=== PATIENT | female | born 1985 | race Two or more races ===

== ENCOUNTER 2024-09-29 13:37 | Emergency (ER) | payer OTHER, SELFPAY ==
[2024-09-29 13:39] VITALS: BMI 23.1
[2024-09-29 13:56] VITALS: BP 118/73; PULSE 71; RESP 16; TEMP 37.1; O2SAT 97
--- NOTE | 2024-09-29 14:01 | EDNOTE_ITS ---
ED Headache RME/HPI General Chief Complaint: Headache Stated Complaint: BAD VERAS, FEELS NUMB, AREA AROUND NOSE HURTING 2WKS Time Seen by Provider: 09/29/24 15:00 Source: patient Arrival date/time: 09/29/24 13:37 39-year-old female with no known medical history presents to the emergency room with a chief complaint of a headache, sinus tenderness x 2 weeks Mode of arrival: ambulatory Limitations: no limitations Related Data Previous Rx's ?Medication ?Instructions ?Recorded cyclobenzaprine 10 mg tablet 10 mg PO HS #14 tabs 05/02 01/20 meloxicam 7.5 mg tablet 7.5 mg PO QDAY #14 tabs 05/02 01/20 amoxicillin 875 mg-potassium 1 tab PO BID 7 days #14 t abs 09/29/24 clavulanate 125 mg tablet Allergies Allergy/AdvReac Type Severity Reaction Status Date / Time No Known Allergies Allergy Verified 09/29/24 13:44 Review of Systems Review of Systems Systems Reviewed: All systems reviewed, normal except as documented Constitutional Constitutional: Reports system reviewed and no additional complaints, except as documented, Denies fatigue, Denies fever(s), Denies headache(s) and Denies weakness Eyes Eyes: Reports system reviewed and no additional complaints, except as documented, Denies blurry vision and Denies change in vision ENT Ears, Nose, Mouth, and Throat: Reports system reviewed and no additional complaints, except as documented, Denies otalgia, Denies headache(s), Denies nasal congestion, Reports odynophagia, Reports sinus pain, Reports sinus pressure, Reports sore throat, Denies throat swelling and Denies vertigo Cardiovascular Cardiovascular: Reports system reviewed and no additional complaints, except as documented, Denies chest pain, Denies dyspnea and Denies dyspnea on exertion Respiratory Respiratory: Reports system reviewed and no additional complaints, except as documented, Denies chest congestion, Denies cough, Denies dyspnea, Denies dyspnea on exertion and Denies wheezing Gastrointestinal Gastrointestinal: Reports system reviewed and no additional complaints, except as documented, Denies abdominal pain, Denies cramping, Denies nausea, Reports odynophagia and Denies vomiting Genitourinary Genitourinary: Reports system reviewed and no additional complaints, except as documented Musculoskeletal Musculoskeletal: Reports system reviewed and no additional complaints, except as documented and Denies back pain Integumentary/Breasts Skin/Breast: Reports system reviewed and no additional complaints, except as documented and Denies wounds Neurologic Neurologic: Reports system reviewed and no additional complaints, except as documented, Denies confusion, Denies headache(s), Denies lack of coordination, Denies vertigo and Denies weakness Psychiatric Psychiatric: Reports system reviewed and no additional complaints, except as documented, Denies anxiety, Denies confusion, Denies depression, Denies paranoia, Denies suicidal ideation and Denies tactile hallucinations Endocrine Endocrine: Reports system reviewed and no additional complaints, except as documented and Denies fatigue Hematologic/Lymphatic Hematologic/Lymphatic: Reports system reviewed and no additional complaints, except as documented and Denies lymphadenopathy Allergic/Immunologic Allergic/Immunologic: Reports system reviewed and no additional complaints, except as documented, Denies throat swelling, Denies urticaria and Denies wheezing ED Exam General Limitations: Present no limitations General appearance: Present alert and in no apparent distress Head Head exam: Present atraumatic, normocephalic and normal inspection Eye Eye exam: Present normal appearance, PERRL and EOMI ENT ENT exam: Present normal exam, normal oropharynx and mucous membranes moist Neck Neck exam: Present normal inspection, full ROM and trachea midline Chest Chest inspection: Present normal inspection and symmetric chest wall rise Respiratory Respiratory exam: Present normal lung sounds bilaterally; Absent respiratory distress, wheezes, stridor, accessory muscle use or prolonged expiratory phase Cardiovascular Cardiovascular exam: Present regular rate, normal rhythm and normal heart sounds Abdominal Exam Abdominal exam: Present soft and normal bowel sounds Extremities Exam Extremities exam: Present normal inspection and full ROM Back Exam Back exam: Present normal inspection and full ROM Neurological Exam Neurological exam: Present alert, oriented X3 and CN II-XII intact Psychiatric Psychiatric exam: Present normal affect and normal mood Skin Skin exam: Present warm, dry, intact and normal color Course Quality Measures none Orders Category Date Time Status Bedside COVID-19 Antigen Test NOW Care 09/29/24 14:01 Active Bedside Influenza A&B Antigen Test NOW Care 09/29/24 14:01 Completed Strep A Rapid Stat Lab 09/29/24 14:10 Completed Vital Signs Vital signs: Vital Signs Temperature 98.8 F 09/29/24 13:56 Pulse Rate 71 09/29/24 13:56 Respiratory Rate 16 09/29/24 13:56 Blood Pressure 118/73 09/29/24 13:56 Pulse Oximetry (%) 97 09/29/24 13:56 Oxygen Delivery Method Room Air 09/29/24 13:56 O2 saturation 97% within normal limits Headache MDM Narrative MDM Narrative:: 39-year-old female with no known medical history presents to the emergency room with a chief complaint of a headache, sinus tenderness x 2 weeks Physical examination shows clear bilateral lung sounds there is no wheezing there is no abnormal breath sounds there is no accessory muscle use The patient is afebrile she is not tachycardic not tachypneic and O2 saturation is 97% on room air patient has tenderness to her sinuses Antibiotics are sent to the patient's pharmacy Patient was discharged and educated to follow-up with primary care provider in the next 24 to 48 hours and return to the emergency room for any evidence of worsening signs or symptoms Patient data External records reviewed:: [facility] previous records Clinical information provided by:: patient Social determinants that could affect healthcare access:: none Patient has the following chronic illnesses:: No chronic illness How is presenting disease/condition affected by chronic disease/condition?: no chronic disease Evaluation data The following diagnostics were reviewed and interpreted by me:: lab results and radiology exam(s) Lab and/or radiology exams considered but not ordered:: Labs and radiology exams considered and ordered Interpretation Summary: N/A Medications / Prescriptions Medications or Prescriptions considered but not ordered:: Medication given Medication administrations:: Rx given Consultations Consultation(s) initiated? (list below): No Diagnosis Differential diagnosis headache: migraine, headache and sinusitis Most likely diagnosis given after review of the tests above:: Sinusitis Admission Indicated Admission indicated?: not indicated Admission Request Was there a request for admission?: No Disposition Plan Disposition Plan: Discharge Discharge Attestation Discharge Attestation: The patient and all family members were given an opportunity to ask questions and understood the discharge instructions. Discharge instructions specifically effects, indications for sooner follow up or return to the emergency department, and the expected course of current diagnosis. Patient condition: Stable Discharge Plan Plan Patient Disposition: HOME (Self Care) Disposition Comment: Stable Prescriptions/Referrals Prescriptions/Med Rec: New amoxicillin-pot clavulanate 875-125 mg tablet 1 tab PO BID 7 Days Qty: 14 0RF No Action cyclobenzaprine 10 mg tablet 10 mg PO HS Qty: 14 0RF meloxicam 7.5 mg tablet 7.5 mg PO QDAY Qty: 14 0RF Referrals: No Primary/Family,Physician [Primary Care Provider] - In 1 week Problem List Clinical Impression: Sinusitis Patient/Caregiver Discharge Instructions Education Materials: ED Sinusitis (Antibiotic Treatment) Additional Instructions: Please follow-up with your primary care provider in the next 24 to 48 hours. Antibiotics are sent to your pharmacy please pick them up and take them as indicated. For any evidence of worsening signs or symptoms return to the emergency room immediately Print Language: Welsh Stand Alone Forms: [employer]mmy Award Info., Patient Portal Info Letter PA/PAYROLL AND BENEFITS MANAGER Supervising Physician PA/PAYROLL AND BENEFITS MANAGER Supervising Physician: Dr. Clemons
[2024-09-29 14:30] LABS: Strep A Rapid Negative (Negative)
== END 2024-09-29 16:00 | disposition home or self-care (01) ==
PROVIDERS: Nurse Practitioner Family; Emergency Provider Emergency Medicine
DX: J32.9 Chronic sinusitis, unspecified (principal)
CPT/HCPCS: 87400; 87651; 87811; 99283